=== PATIENT | female | born 1990 | race Caucasian/White ===

== ENCOUNTER 2021-10-06 04:20 | Emergency (ER) | payer OTHER, SELFPAY ==
[2021-10-06 04:28] VITALS: BP 186/95; PULSE 103; RESP 18; TEMP 36.9; O2SAT 97; BMI 45.7
[2021-10-06 04:56] LABS: COVID-19 Test Negative (Negative)
[2021-10-06 05:20] LABS: IDNOW Serial# 08D9AD1C; Influenza A Negative (Negative); Influenza B2 Negative (Negative)
--- NOTE | 2021-10-06 05:23 | ED.URI ---
HPI - URI/Sore Throat General Chief Complaint: Headache Stated Complaint: sun poisoning, head throbbing, sore throat Time Seen by Provider: 10/06/21 04:41 Source: patient Mode of arrival: ambulatory Limitations: no limitations History of Present Illness MD elicited complaint: sore throat, sinus pain and other (R ear pain, sunburn, R sided headache) Onset (ago): day(s) (3) Consistency: progressively worsening Severity: moderate Description of mucous: clear Able to tolerate fluids by mouth: Yes Exacerbating factors: swallowing and changing head position Relieving factors: nothing Context: recent travel (came back from [place] on Friday) Associated symptoms: headache, sore throat and ear pain Treatments prior to arrival: none Related Data Previous Rx's Medication Instructions Recorded doxycycline hyclate 100 mg capsule 100 mg PO BID 7 Days #14 cap 10/06/21 Allergies Allergy/AdvReac Type Severity Reaction Status Date / Time erythromycin base Allergy Unknown UNKNOWN Verified 10/06/21 04:33 [ERYTHROMYCIN BASE] sulfamethoxazole Allergy Unknown UNKNOWN Verified 10/06/21 04:33 [From BACTRIM] trimethoprim [From BACTRIM] Allergy Unknown UNKNOWN Verified 10/06/21 04:33 Review of Systems Review of Systems: Constitutional : No Fever, pos Chills, pos Fatigue, No Malaise ENT/Mouth : pos sore throat, No Rhinorrhea, pos ear pain Eyes: No Eye Pain, No Swelling, No Redness Cardiovascular : No Chest Pain, No SOB Respiratory : No Cough, No Sputum, No Wheezing Gastrointestinal : No Nausea, No Vomiting, No Diarrhea Genitourinary : No Dysuria, No Urinary Frequency, No Hematuria, Musculoskeletal : No joint pain, No Myalgias, No Joint Swelling Skin : No Skin Lesions, No rash, pos sunburn Neuro : No Weakness, No Numbness, No Dizziness, pos Headache Psych : No Anxiety/Panic, No Depression PMFSH Past Medical History Attestation statement: The following information was validated with the patient. Medical History Anxiety Depression Social History Social History (Updated 10/06/21 @ 05:37 by Becky Hooper DO) Patient Tobacco Use Status: Never used Tobacco Advance Directives: No Advance Directives Information Provided: Yes Patient : No Physical Exam Vital Signs: Vital Signs: Last Vital Signs Temp 98.4 F 10/06/21 04:28 Pulse 103 H 10/06/21 04:28 Resp 18 10/06/21 04:28 BP 135/83 10/06/21 05:46 Pulse Ox 97 10/06/21 04:28 BMI result Body Mass Index 45.7 Appearance: Alert. Oriented X3. No acute distress. Eyes: Pupils equal, round and reactive to light. ENT: Pharynx erythema with mild clearish white patches noted - small vesicles uvula midline appears viral, sinus congestion and bilateral sinus ttp, R TM normal Neck: Normal inspection. Neck supple. no mengineal signs CVS: Normal heart rate and rhythm. Pulses normal. Respiratory: No respiratory distress. Breath sounds normal. Abdomen: Soft and nontender. Skin: Skin warm and dry. Normal skin color. Normal skin turgor. Extremities: No lower extremity edema. No calf ttp Neuro: Oriented X 3. No motor deficit. No sensory deficit. MDM - URI/Sore Throat MDM Narrative Medical decision making narrative: 30 yo female with no sig PMH here with c/o sore throat, R ear pain, sinus pressure - at this time likely viral vs sinusitis will treat pain and start on doxycycline - patient agreeable with plan denies concern for pharyngitis to be STIl at this time Lab Data Labs: Lab Results 10/06/21 10/06/21 Range/Units 04:35 04:58 COVID-19 (HARVINDER) Negative (Negative) COVID-19 Clin Com See Note Influenza Type A (IVETT) Negative (Negative) Influenza Type B (IVETT) Negative (Negative) Influenza A & B Note See Note Discharge Plan Discharge Clinical Impression: Acute viral pharyngitis Sinusitis Qualifiers: Sinusitis location: maxillary Chronicity: acute Recurrence: non-recurrent Qualified Code(s): J01.00 - Acute maxillary sinusitis, unspecified Patient Disposition: Home, Self-Care Instructions: Pharyngitis (ED), Sinusitis (ED) Additional Instructions: return to ED for any worsening symptoms or concerns Prescriptions: New doxycycline hyclate 100 mg capsule 100 mg PO BID 7 Days Qty: 14 0RF Referrals: Morgan Peres MD [Primary Care Provider] - 3 days (if not better) Interventions: ED Discharge Assessment Last Done: 10/06/21 06:01 Discharge Date/Time: 10/06/21 06:02
[2021-10-06] MEDS: Butalb/Acetamin/Caff 50/325/40 TABLET 1 TAB PO (05:27)
[2021-10-06] MEDS: Ketorolac Tromethamine 60 MG/2 ML VIAL IM (05:27)
[2021-10-06 05:46] VITALS: BP 135/83
== END 2021-10-06 06:02 | disposition home or self-care (01) ==
LOC: HO.ED 05:52
PROVIDERS: Emergency Provider Emergency Medicine; PCP Internal Medicine
DX: J02.9 Acute pharyngitis, unspecified (principal); J01.00 Acute maxillary sinusitis, unspecified; Z20.822 Contact with and (suspected) exposure to COVID-19
CPT/HCPCS: 87502; 87635; 96372; 99283; 99284; J1885

== ENCOUNTER → 2022-11-14 15:28 | Outpatient (BNVA) | payer OTHER, SELFPAY | PROVIDERS: PCP Internal Medicine; Referring Provider Internal Medicine; Visit Provider Physician Assistant Surgical ==

== ENCOUNTER 2023-02-24 12:54 | Outpatient (AMB) | payer OTHER, SELFPAY ==
--- NOTE | 2023-02-24 13:01 | A.OFFVIS_ITS ---
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 Social History (Updated 11/14/22 @ 15:39 by TISHA Dao) Alcohol intake: current Alcohol intake frequency: holidays/special occasions only Patient Tobacco Use Status: Never used Tobacco Coding Diagnoses
--- NOTE | 2023-02-24 13:04 | A.OFFVIS_ITS ---
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: No Allergies erythromycin base [ERYTHROMYCIN BASE] Allergy (Unknown, Verified 02/24/23 13:04) UNKNOWN sulfamethoxazole [From BACTRIM] Allergy (Unknown, Verified 02/24/23 13:04) UNKNOWN trimethoprim [From BACTRIM] Allergy (Unknown, Verified 02/24/23 13:04) UNKNOWN Medication List - Last Reconciled 02/24/23 by CHECO Fitzgerald clonazepam (Klonopin) 0.5 mg PO BEDTIME PRN fexofenadine (Allergy Relief (fexofenadine)) 180 mg PO DAILY [MULTIVITAMIN PO] norethindrone (contraceptive) 0.35 mg PO DAILY paroxetine HCl (Paxil) 20 mg PO DAILY [VITAMIN D PO] HPI HPI Comments History of Present Illness Details Pt is here to start the [facility] surgical weight loss program. She heard about our program from her PCP. Her goal is to lose weight and achieve a healthy lifestyle as well as to improve. She reports first being concerned about her weight lifelong, highest weight to date was 285. Current weight is 265.6 pounds with a BMI of 44.2. She has tried multiple methods of weight loss including fad diets without permanent results. She lives alone. 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 She wakes at:?5 am, and goes to bed at?9 pm. Dinner is at 6 pm. Breakfast: skip or granola bar AM snack: goldfish Lunch: leftovers PM snack: skip Dinner: take out, chicken tacos, chicken w rice, pasta, After dinner: ice cream, poopcorn, candy Other snacks: as above Liquids: 32 oz water daily, 2-3 cans diet coke daily, no juice Alcohol/marijuana/tobacco intake: 8 oz q 2-3 weeks etoh, no cannabis, no tobacco Exercise: none, gym membership at [employer] GERD score: 6 VALENTIN score: 1 ESS score: 6 QOL score: 90 [facility] Medical History (Updated 02/24/23 @ 13:10 by CHECO Fitzgerald) Anxiety Depression Surgical History Hx of tonsillectomy Family History Mother Brain aneurysm Father Hypertension High cholesterol Emphysema lung Aortic aneurysm Sister No problems noted. Social History Alcohol intake: current Alcohol intake frequency: holidays/special occasions only Patient Tobacco Use Status: Never used Tobacco Physical Exam Vital Signs: Last Vital Signs Temp 98.3 F 02/24/23 13:06 Pulse 84 02/24/23 13:06 BP 147/79 H 02/24/23 13:06 Pulse Ox 96 02/24/23 13:06 Oxygen Delivery Method Room Air 02/24/23 13:06 BMI result Body Mass Index 44.2 Const General: cooperative, healthy appearing and no acute distress Orientation/consciousness: patient oriented x3 HEENT Head: Yes normal to inspection Ears: hearing grossly normal bilaterally General nose exam: Normal external nose present Face and sinus: Yes normal facial exam Eyes General: appearance normal, both eyes and all related structures Resp Effort & Inspection: normal respiratory effort Auscultation: clear to auscultation bilaterally Cardio Rate: regular rate Rhythm: regular rhythm Heart sounds: S1 normal heart sound present and S2 normal heart sound present GI Inspection: Yes normal to inspection, No distended and Yes obesity Palpation (GI): Soft to palpation, nontender and no guarding Auscultation: normal bowel sounds Skin General skin exam: no rashes or lesions noted Neuro General: patient oriented x3 Extrem General: No edema Psych Appearance: grossly normal Mental Status: mental status grossly normal Speech and movement: Normal speech and movement present Affect: normal affect Attitude: cooperative Assessment & Plan Assessment & Plan (1) Morbid obesity: Code(s): E66.01 - Morbid (severe) obesity due to excess calories Plan: This is a?32 yo female who will start our SWL program to prepare for bariatric surgery.? Blood work, h pylori , CXR, ECG, Abd US and UGI have been ordered. She is being scheduled for RD and BH initial consultations. She will start SWL classes and watch the first three videos before her next appointment. ? Adequate sleep of 7-8 hours per night discussed, awakening at 5 am and going to bed around 9 pm ? You may continue to use your home body composition scales as long as it works, be sure and check weight weekly. Put in fresh batteries. The best time to do this is first thing in the morning after going to the bathroom. 1. Nutritional counseling: Be sure to careful read the number of scoops per shake Start with 2 Orgain shakes ([employer], [employer], [employer]), (2 scoops in 8-10 oz low fat unsweetened almond milk or water each) First shake at 6am-8am, 1 protein bar (Fit Crunch bars at [employer], [employer], or [employer]) at 10am-12pm. Another shake at 2pm-4pm. Dinner at 6pm (8 forks of protein and 8 forks of salad/vegetables). Meal to include lean meat (beef, fish, pork, turkey, chicken), cooked vegetables or a salad with olive oil and/or fruits (berries, pears, apples, kiwi). Avoid salt, breads, potatoes, rice, pasta, desserts. 1 protein bar (Fit Crunch bars at [employer], [employer], or [employer]) at 7pm-9pm.. Try to drink 64 oz of water daily and avoid soda and juices. ?2. Each shake would be drunk slowly, like coffee in a period of 2 hours. ?3. Cut each bar in 4 pieces and eat each piece in 30 min ?to make each bar last 2 hours. ?4. I emphasized the importance of measuring accurately the food portion and measure it carefully when serving the food on the plate ?5. The meal portions include 8 full-size forks of meat and 8 full-size forks of salad. You always eat the meat portion but you can replace up to half of the forks of salad/vegetables with rice, potatoes or pasta, or a fruit ?if you like. The less you do it the better weight loss will be. ?6. One full-size fork is what can be scooped on the fork without falling aside and not what can be bit with the fork. Use regular forks like those you find in a typical restaurant. ?7.? Please send me weight measurements as soon as possible and then once a week. Always include your diet and exercise plan. Alternatively come weekly at the office for weight checks and send me the measurements. ?8. Exercise counseling: Begin by watching a stretching for beginners video. Start slowly and begin to stretch your muscles. You should do this before and after each exercise session to prevent injury. Please go to [employer] gym near your home. Ask the manager hospital or one of the trainers how to use the machines if you are unfamiliar with them. Start elliptical with a resistance of 2. Increase resistance by 1 every 3 min to your most comfortable resistance with a max resistance of 8. Reduce the resistance by 1 every 3 minutes back down to 2 and repeat cycles for 300 calories. Alternatively, start treadmill with a speed of 3.0 and incline of 0, increasing incline by 1 every 3 minutes to the highest comfortable level (max 6 for now) then decrease in the same fashion. Repeat process to a goal of 300 calories. Goal of 2000 calories burned or more weekly. You may also consider use of the stationary bike. The easiest would be to chose the fat-burn or interval training program on the machine and do this until you reach the 300 calorie goal. Alternatively, you can manually adjust the resistance in a similar fashion as mentioned above, (resistance of 2-8 with a goal speed of 12 mph). Tracking calories is essential. 9. Alternatively start walking outside daily, tracking calories with a goal of 300 calories per day, daily. You can download the fabi [employer] which can track your time, distance and calories while walking outside. You press start in the fabi when you start and then stop when you are finished. 10.? It is important to avoid for at least 18 months postoperatively and it has been discussed at the information session 11. Please get labs, EKG and chest X-Ray within 1 week. 12. Discussed and answered all questions regarding?obtained consent to participate in the [facility]?Registry. 13. Please follow the diet plan exactly, without any change. If you do not like something about the plan or you feel hungry, you need to communicate with me so I can help you revise the plan. You should not change the plan yourself. Text me at [phone] 14. Goal is to lose at least 12 pounds in the first month 15. Goal is to lose 10% of your weight before surgery, which is about 26 lbs. Ultimate weight goal: 239 lbs before surgery Patient is morbidly obese and is not considered stable at this time.?I spent a total of 70 minutes reviewing/updating records, examining the patient and counseling the patient on weight management as detailed above. Orders: Orders Vitamin B12 and Folate Today E66.01 - Morbid (severe) obesity due to excess calories Comprehensive Met. Panel Today E66.01 - Morbid (severe) obesity due to excess calories C Reactive Protein Today E66.01 - Morbid (severe) obesity due to excess calories Ferritin Today E66.01 - Morbid (severe) obesity due to excess calories Hemoglobin A1c Today E66.01 - Morbid (severe) obesity due to excess calories Insulin Today E66.01 - Morbid (severe) obesity due to excess calories IRON PROFILE Today E66.01 - Morbid (severe) obesity due to excess calories Lipid Panel Today E66.01 - Morbid (severe) obesity due to excess calories PTHI Today E66.01 - Morbid (severe) obesity due to excess calories TSH reflex Free T4 Today E66.01 - Morbid (severe) obesity due to excess calories Vitamin A Today E66.01 - Morbid (severe) obesity due to excess calories Vitamin B1 Today E66.01 - Morbid (severe) obesity due to excess calories Vitamin D 25-OH Total Today E66.01 - Morbid (severe) obesity due to excess calories Zinc Today E66.01 - Morbid (severe) obesity due to excess calories ECG 12 lead EKG Today E66.01 - Morbid (severe) obesity due to excess calories FL upper GI w air Today E66.01 - Morbid (severe) obesity due to excess calories Complete Blood Count Auto Diff Today E66.01 - Morbid (severe) obesity due to excess calories H Pylori Breath Test Today E66.01 - Morbid (severe) obesity due to excess calories US abdomen comp w elastography Today E66.01 - Morbid (severe) obesity due to excess calories XR chest 2V Today E66.01 - Morbid (severe) obesity due to excess calories Referrals Behavioral Health Referral E66.01 - Morbid (severe) obesity due to excess calories Nutrition/Dietitian Referral E66.01 - Morbid (severe) obesity due to excess calories Coding Level of Care Code New Pt Level 5 (82776) Diagnoses Morbid obesity E66.01 Time Spent (min) 70
[2023-02-24 13:06] VITALS: BP 147/79; PULSE 84; TEMP 36.8; O2SAT 96; BMI 44.2
== END 2023-02-24 14:06 | disposition home or self-care (01) ==
PROVIDERS: PCP Internal Medicine; Visit Provider Physician Assistant Surgical
DX: E66.01 Morbid (severe) obesity due to excess calories (principal); Z68.41 Body mass index [BMI] 40.0-44.9, adult
CPT/HCPCS: 99205

== ENCOUNTER → 2023-02-24 12:54 | Outpatient (BNVA) | payer OTHER, SELFPAY | PROVIDERS: PCP Internal Medicine; Visit Provider Physician Assistant Surgical | DX: E66.01 Morbid (severe) obesity due to excess calories (principal); Z11.2 Encounter for screening for other bacterial diseases | CPT/HCPCS: 99211 ==

== ENCOUNTER 2023-02-24 14:13 | Outpatient (REF) | payer OTHER, SELFPAY ==
[2023-02-26 14:47] LABS: H Pylori Breath Test Negative (Negative)
== END 2023-02-24 14:14 | disposition home or self-care (01) ==
LOC: HO.LNP 14:13
PROVIDERS: Visit Provider Physician Assistant Surgical
DX: E66.01 Morbid (severe) obesity due to excess calories (principal); Z11.0 Encounter for screening for intestinal infectious diseases
CPT/HCPCS: 83013